=== PATIENT | female | born 1950 | race Caucasian/White ===

== ENCOUNTER 2017-10-05 13:38 | Outpatient (CLI) | payer BC | END 2017-10-05 13:39 | disposition home or self-care (01) | LOC: BICMAMMO 13:38 | PROVIDERS: ATTEND Internal Medicine | DX: Z08 Encounter for follow-up examination after completed treatment for malignant neoplasm (principal); Z85.3 Personal history of malignant neoplasm of breast | CPT/HCPCS: 77066; G0279 ==

== ENCOUNTER 2019-11-10 09:35 | Outpatient (CLI) | payer MEDICARE, BC ==
--- NOTE | 2019-11-10 12:09 | MMO ---
Bilateral MAMMO Bilat Screen [facility]. CLINICAL HISTORY: Patient is 69 years old and is seen for screening. The patient has no family history of breast cancer. The patient has a history of lumpectomy procedure revealed invasive ductal right breast carcinoma in March, and Ultrasound guided core biopsy procedure revealed invasive ductal right breast carcinoma in February,. The patient has a history of right Ultrasound Guided Core Biopsy in February,, left Stereotatic Biopsy in 1999 - benign and right Lumpectomy in 2012 - malignant. VIEWS: The views performed were: bilateral craniocaudal with tomosynthesis and bilateral mediolateral oblique with tomosynthesis. FILMS COMPARED: The present examination has been compared to prior imaging studies performed at [facility] on 12/11/2011, 12/19/2011, 10/05/2017 and 11/05/2018. This study has been interpreted with the assistance of computer-aided detection. MAMMOGRAM FINDINGS: There are scattered fibroglandular densities. Finding 1: There are stable benign appearing calcifications seen in both breasts. Finding 2: There is a mass measuring 5 millimeters seen in the CC view only seen in the central region of the right breast. Finding 3: There are stable benign appearing densities seen in both breasts. IMPRESSION: FINDING 1: STABLE CALCIFICATIONS IN BOTH BREASTS ARE BENIGN. FINDING 2: MASS IN THE RIGHT BREAST REQUIRES ADDITIONAL EVALUATION. ADDITIONAL PROJECTIONS (RIGHT CRANIOCAUDAL SPOT COMPRESSION; RIGHT MEDIOLATERAL OBLIQUE SPOT COMPRESSION; AND RIGHT MEDIOLATERAL) ARE RECOMMENDED. AN ULTRASOUND EXAM IS RECOMMENDED IF NEEDED. ADDITIONAL IMAGING. FINDING 3: STABLE BENIGN APPEARING DENSITIES IN BOTH BREASTS ARE BENIGN. THE RESULTS OF THIS EXAM WERE SENT TO THE PATIENT. ACR BI-RADS Category 0 - Incomplete: Need additional imaging evaluation. [facility] will notify the patient of the need for additional imaging services. MAMMOGRAPHY NOTE: 1. A negative mammogram report should not delay a biopsy if a dominant of clinically suspicious mass is present. 2. Approximately 10% to 15% of breast cancers are not detected by mammography. 3. Adenosis and dense breasts may obscure an underlying neoplasm. Reported by: TITA JONES MD Electonically Signed: [id number]
== END 2019-11-10 09:36 | disposition home or self-care (01) ==
LOC: BICMAMMO 09:35
PROVIDERS: ATTEND Internal Medicine
DX: Z12.31 Encounter for screening mammogram for malignant neoplasm of breast (principal); R92.1 Mammographic calcification found on diagnostic imaging of breast; N63.10 Unspecified lump in the right breast, unspecified quadrant; Z85.3 Personal history of malignant neoplasm of breast; Z98.890 Other specified postprocedural states; Z91.89 Other specified personal risk factors, not elsewhere classified
CPT/HCPCS: 77063; 77067

== ENCOUNTER 2019-11-24 08:39 | Outpatient (CLI) | payer MEDICARE, BC ==
--- NOTE | 2019-11-24 10:04 | MMO ---
Right Breast MAMMO Unilat Diag [facility]DI RT+ANN. CLINICAL HISTORY: Patient is 69 years old and is seen for diagnostic exam. The patient has no family history of breast cancer. The patient has a history of lumpectomy procedure revealed invasive ductal right breast carcinoma in March, and Ultrasound guided core biopsy procedure revealed invasive ductal right breast carcinoma in February,. The patient has a history of right Ultrasound Guided Core Biopsy in February,, left Stereotatic Biopsy in 1999 - benign and right Lumpectomy in 2012 - malignant. VIEWS: The views performed were: right craniocaudal spot compression with tomosynthesis; right mediolateral oblique spot compression with tomosynthesis; and right mediolateral with tomosynthesis. FILMS COMPARED: The present examination has been compared to prior imaging studies performed at [facility] on 10/05/2017, 11/05/2018, 11/10/2019 and 11/24/2019. This study has been interpreted with the assistance of computer-aided detection. MAMMOGRAM FINDINGS: Additional views were performed. THE TINY NODULE IN THE RIGHT BREAST LIKELY 11-12:00 POSITION PERSISTS AND APPEARS TO BE SOMEWHAT SPICULATED. IT IS NOT SEEN ON US. IMPRESSION: FINDING IN THE RIGHT BREAST IS SUSPICIOUS. NEEDLE LOCALIZATION AND BIOPSY ARE RECOMMENDED. THE RESULTS OF THIS EXAM WERE SENT TO THE PATIENT. ACR BI-RADS Category 4 - Suspicious abnormality - biopsy should be considered MAMMOGRAPHY NOTE: 1. A negative mammogram report should not delay a biopsy if a dominant of clinically suspicious mass is present. 2. Approximately 10% to 15% of breast cancers are not detected by mammography. 3. Adenosis and dense breasts may obscure an underlying neoplasm. Reported by: REZA SHEETS MD Electonically Signed: [id number]
--- NOTE | 2019-11-24 10:29 | ULT ---
RIGHT BREAST ULTRASOUND: HISTORY: Abnormal mammogram. FINDINGS: Correlation is made with mammograms of 11/10/2019 and 11/24/2019. Sonographic evaluation of the right upper outer breast demonstrates no abnormality to correspond to t he mammographic finding. IMPRESSION: BIRADS category 4 - suspicious abnormality. Needle localization and biopsy of recommended. Discussed in person with the patient at 9:45 a.m. and over the telephone with Dr. Charles Gross at 9:55 a.m. CODE CR POS: OFF
== END 2019-11-24 08:40 | disposition home or self-care (01) ==
LOC: BICMAMMO 08:39
PROVIDERS: ATTEND Internal Medicine
DX: R92.8 Other abnormal and inconclusive findings on diagnostic imaging of breast (principal)
CPT/HCPCS: 76642; 77065; G0279

== ENCOUNTER 2021-04-16 12:46 | Outpatient (CLI) | payer MEDICARE, BC | END 2021-04-16 12:47 | disposition home or self-care (01) | LOC: BICMAMMO 12:46 | PROVIDERS: ATTEND Surgery | DX: N63.11 Unspecified lump in the right breast, upper outer quadrant (principal) | CPT/HCPCS: 76642; 77066; G0279 ==

== ENCOUNTER 2022-03-11 12:31 | Inpatient (IN) | payer MEDICARE, BC ==
[2022-03-11] MEDS ORDERED: Ondansetron PF 4 MG/2 ML Vial IVP PRN (17:16)
[2022-03-11] MEDS ORDERED: Dextrose 5% in Water 1,000 ML IV PRN (17:16)
[2022-03-11] MEDS ORDERED: Ondansetron ODT 4 MG TAB PO PRN (17:16)
[2022-03-11] MEDS ORDERED: Dextrose 50% Abboject 50 ML SYRINGE SLOW IVP PRN (17:16)
[2022-03-11] MEDS ORDERED: TETANUS, DIPHTHERIA TOX,ADULT (TDVAX) 0.5 ML VIAL IM ONE (17:16)
[2022-03-11] MEDS ORDERED: traMADol HCl 50 MG TAB PO PRN (17:21)
[2022-03-11] MEDS ORDERED: Cyclobenzaprine 10 MG TAB PO PRN (17:21)
[2022-03-11 17:44] LABS: #Eosinphils 0.1 thou/uL (0.0-0.7); #Monocytes 0.6 thou/uL (0.11-0.59); #Neutrophils 4.5 thou/uL (1.40-6.50); %Basophils 0.6 % (0.0-1.0); %Eosinophils 0.9 % (0.0-10.0); %Lymphocytes 27.7 % (21.0-51.0); %Monocytes 8.3 % (0.0-10.0); %Neutrophils 62.6 % (42.0-75.0); Hemoglobin 13.5 g/dL (12.0-16.0); Mean Corpuscular Hemoglobin 32.9 pg (27.0-31.0); Mean Corpuscular Volume 99.8 fl (78.0-98.0); Mean Platelet Volume 9.1 fL (7.4-10.4); Platelet Count 279 10x3/uL (130-400); RBC Distribution Width 12.6 % (11.5-14.5); Red Blood Cell (RBC) Count 4.09 mill/uL (4.20-5.40); White Blood Cell (WBC) Count 7.2 10x3/uL (4.8-10.8)
[2022-03-11 17:57] LABS: INR-International Normal Ratio 1.2; Prothrombin Time 15.6 sec (12.0-14.7)
[2022-03-11 18:04] LABS: Phosphorus 3.5 mg/dL (2.3-4.7)
[2022-03-11 18:06] LABS: ALT (SGPT) 15 U/L (8-55); AST (SGOT) 22 U/L (5-34); Albumin 4.3 g/dL (3.4-4.8); Alkaline Phosphatase 73 U/L (40-110); Anion Gap 14 mmol/L (10-20); BUN (Urea Nitrogen) 10 mg/dL (9.8-20.1); Bilirubin, Total 0.8 mg/dL (0.2-1.2); Calc. Creatinine Clearance 0 mL/min (70-130); Calcium 9.6 mg/dL (7.8-10.44); Carbon Dioxide 26 mmol/L (23-31); Chloride 99 mmol/L (98-107); Estimated GFR 80; Globulin 3.6 g/dL (2.4-3.5); Glucose 82 mg/dL (83-110); Potassium 3.7 mmol/L (3.5-5.1); Protein, Total 7.9 g/dL (5.8-8.1); Sodium 135 mmol/L (136-145)
[2022-03-11 18:15] VITALS: BMI 32.9
[2022-03-11] MEDS: Acetaminophen 500 MG TAB PO SCH (19:24)
[2022-03-11] MEDS ORDERED: Potassium Phosphate 15 MMOL in Sodium Chloride 0.9% 250 ML 250 ML IVPB SCH (20:45)
[2022-03-11] MEDS ORDERED: Famotidine 20 MG TAB PO SCH (21:00)
[2022-03-11] MEDS: Flecainide 50 MG TAB PO SCH (21:35)
[2022-03-11] MEDS: Senokot S 8.6-50 MG TAB PO SCH (21:36)
[2022-03-12 00:20] LABS: SARS-CoV-2 NAA Rapid Test Not Detected (NotDetected)
[2022-03-12] MEDS: traMADol HCl 50 MG TAB PO PRN (01:15)
[2022-03-12] MEDS: Acetaminophen 500 MG TAB PO SCH ×5 (01:16→23:59)
[2022-03-12] MEDS: Flecainide 50 MG TAB PO SCH (09:28)
[2022-03-12] MEDS: Polyethylene Glycol 3350 17 GM Packet PO SCH (09:28)
[2022-03-12] MEDS: Senokot S 8.6-50 MG TAB PO SCH ×2 (09:29→20:51)
[2022-03-12] MEDS: Ketorolac Tromethamine 30 MG/ML VIAL IVP SCH ×3 (11:39→23:58)
[2022-03-12] MEDS: traMADol HCl 50 MG TAB PO SCH ×3 (11:39→23:59)
[2022-03-12] MEDS ORDERED: Clindamycin/D5W 900 MG in Premix Bag 1 BAG IVPB SCH (13:45)
[2022-03-13] MEDS: hydrALAZINE 20 MG/ML VIAL SLOW IVP PRN (03:39)
[2022-03-13 04:44] LABS: #Basophils 0.1 thou/uL (0.0-0.2); #Eosinphils 0.1 thou/uL (0.0-0.7); #Lymphocytes 2.3 thou/uL (1.20-3.40); #Monocytes 0.6 thou/uL (0.11-0.59); #Neutrophils 2.9 thou/uL (1.40-6.50); %Basophils 0.8 % (0.0-1.0); %Eosinophils 2.4 % (0.0-10.0); %Lymphocytes 38.7 % (21.0-51.0); %Monocytes 10.2 % (0.0-10.0); %Neutrophils 47.8 % (42.0-75.0); Hemoglobin 12.4 g/dL (12.0-16.0); Mean Corpuscular HGB CONC 32.7 g/dL (32.0-36.0); Mean Corpuscular Hemoglobin 33.2 pg (27.0-31.0); Mean Platelet Volume 8.2 fL (7.4-10.4); Platelet Count 280 10x3/uL (130-400); RBC Distribution Width 12.6 % (11.5-14.5); Red Blood Cell (RBC) Count 3.74 mill/uL (4.20-5.40)
[2022-03-13 05:11] LABS: Anion Gap 15 mmol/L (10-20); BUN (Urea Nitrogen) 13 mg/dL (9.8-20.1); Calc. Creatinine Clearance 109 mL/min (70-130); Calcium 9.4 mg/dL (7.8-10.44); Carbon Dioxide 22 mmol/L (23-31); Chloride 102 mmol/L (98-107); Cholesterol 205 mg/dl (< 200 Desired); Estimated GFR 93; Glucose 81 mg/dL (83-110); HDL Cholesterol 69 mg/dL (>60 Neg Risk); LDL Cholesterol, Calculated 123 mg/dL; Magnesium 1.9 mg/dL (1.6-2.6); Potassium 4.2 mmol/L (3.5-5.1); Sodium 135 mmol/L (136-145); Triglycerides 66 mg/dL (Less than 150)
[2022-03-13 05:33] LABS: Phosphorus 4.4 mg/dL (2.3-4.7)
[2022-03-13] MEDS: Ketorolac Tromethamine 30 MG/ML VIAL IVP SCH ×3 (06:28→18:03)
[2022-03-13] MEDS: traMADol HCl 50 MG TAB PO SCH ×3 (06:29→18:02)
[2022-03-13] MEDS: Acetaminophen 500 MG TAB PO SCH ×3 (06:29→18:02)
[2022-03-13] MEDS: Senokot S 8.6-50 MG TAB PO SCH ×2 (08:55→19:58)
[2022-03-13] MEDS: Polyethylene Glycol 3350 17 GM Packet PO SCH (08:55)
[2022-03-13] MEDS: Lisinopril 10 MG TAB PO SCH ×2 (09:06→19:56)
[2022-03-13] MEDS ORDERED: Sodium Chloride 0.9% 1,000 ML IV SCH (09:15)
[2022-03-13] MEDS ORDERED: Fentanyl 250 MCG/5 ML VIAL ONE (14:13)
[2022-03-13] MEDS ORDERED: Clindamycin/D5W 900 mg/50 ml Premix Bag ONE (14:16)
[2022-03-13] MEDS ORDERED: PROPOFOL 200 MG/20 ML VIAL ONE (14:40)
[2022-03-13] MEDS ORDERED: Lidocaine 1% PF 5 ML VIAL ONE (14:40)
[2022-03-13] MEDS ORDERED: Dexamethasone 20 MG/5 ML VIAL ONE (14:40)
[2022-03-13] MEDS ORDERED: Ondansetron PF 4 MG/2 ML Vial ONE (14:40)
[2022-03-13] MEDS ORDERED: HYDROmorphone 0.5 MG/0.5 ML SYRINGE ONE (14:41)
[2022-03-13] MEDS ORDERED: Ketamine 50 MG/ML (10ML VIAL) ONE (14:42)
[2022-03-13] MEDS ORDERED: Lidocaine 1% (PF) 30 ML VIAL ONE (14:57)
[2022-03-13] MEDS ORDERED: Bupivacaine PF 0.5% 30 ML VIAL ONE (14:57)
[2022-03-13] MEDS ORDERED: Bupivacaine 0.25% HCL 30 ML VIAL ONE (14:57)
[2022-03-13] MEDS ORDERED: Bupivacaine HCl 0.5%/Epinephrine 1:200,000/PF 30 ml Vial ONE (14:57)
[2022-03-13] MEDS ORDERED: Fentanyl 100 MCG/2 ML VIAL ONE (16:36)
[2022-03-13] MEDS: Atorvastatin Calcium 20 MG TAB PO SCH (19:56)
[2022-03-13] MEDS: Diltiazem 125 MG in Sodium Chloride 0.9% 100 ML IVPB SCH (20:31)
[2022-03-13] MEDS: Clindamycin/D5W 900 MG in Premix Bag 1 BAG IVPB SCH (21:29)
[2022-03-14] MEDS: Ketorolac Tromethamine 30 MG/ML VIAL IVP SCH ×5 (01:37→18:12)
[2022-03-14] MEDS: traMADol HCl 50 MG TAB PO SCH ×5 (01:38→18:13)
[2022-03-14] MEDS: Acetaminophen 500 MG TAB PO SCH ×5 (01:38→18:13)
[2022-03-14] MEDS: traMADol HCl 50 MG TAB PO PRN (03:27)
[2022-03-14 04:46] LABS: #Lymphocytes 0.7 thou/uL (1.20-3.40); #Monocytes 0.1 thou/uL (0.11-0.59); #Neutrophils 3.4 thou/uL (1.40-6.50); %Basophils 0.6 % (0.0-1.0); %Eosinophils 0.2 % (0.0-10.0); %Lymphocytes 16.7 % (21.0-51.0); %Monocytes 1.8 % (0.0-10.0); %Neutrophils 80.6 % (42.0-75.0); Hemoglobin 12.2 g/dL (12.0-16.0); Mean Corpuscular HGB CONC 32.5 g/dL (32.0-36.0); Mean Platelet Volume 7.9 fL (7.4-10.4); Platelet Count 287 10x3/uL (130-400); RBC Distribution Width 12.6 % (11.5-14.5); Red Blood Cell (RBC) Count 3.71 mill/uL (4.20-5.40); White Blood Cell (WBC) Count 4.3 10x3/uL (4.8-10.8)
[2022-03-14 05:17] LABS: Anion Gap 12 mmol/L (10-20); BUN (Urea Nitrogen) 17 mg/dL (9.8-20.1); Calc. Creatinine Clearance 91 mL/min (70-130); Calcium 9.1 mg/dL (7.8-10.44); Carbon Dioxide 24 mmol/L (23-31); Chloride 100 mmol/L (98-107); Estimated GFR 75; Glucose 116 mg/dL (83-110); Phosphorus 4.1 mg/dL (2.3-4.7); Sodium 131 mmol/L (136-145)
[2022-03-14] MEDS: Clindamycin/D5W 900 MG in Premix Bag 1 BAG IVPB SCH ×2 (06:15→14:37)
[2022-03-14] MEDS: Polyethylene Glycol 3350 17 GM Packet PO SCH (08:45)
[2022-03-14] MEDS: Lisinopril 10 MG TAB PO SCH ×2 (08:45→22:04)
[2022-03-14] MEDS: Senokot S 8.6-50 MG TAB PO SCH ×2 (08:45→22:05)
[2022-03-14] MEDS: Diltiazem 125 MG in Sodium Chloride 0.9% 100 ML IVPB SCH (19:17)
[2022-03-14] MEDS ORDERED: Enoxaparin Sodium 30 MG/0.3 ML SYRINGE SC SCH (21:00)
[2022-03-14] MEDS: Apixaban 5 MG TAB PO SCH (22:04)
[2022-03-14] MEDS: Atorvastatin Calcium 20 MG TAB PO SCH (22:04)
[2022-03-15] MEDS: traMADol HCl 50 MG TAB PO SCH ×4 (00:02→18:01)
[2022-03-15] MEDS: Acetaminophen 500 MG TAB PO SCH ×4 (00:03→18:00)
[2022-03-15 05:02] LABS: #Monocytes 0.6 thou/uL (0.11-0.59); #Neutrophils 4.3 thou/uL (1.40-6.50); %Basophils 0.3 % (0.0-1.0); %Eosinophils 0.2 % (0.0-10.0); %Lymphocytes 28.8 % (21.0-51.0); %Monocytes 8.3 % (0.0-10.0); %Neutrophils 62.4 % (42.0-75.0); Hemoglobin 11.5 g/dL (12.0-16.0); Mean Corpuscular HGB CONC 33.5 g/dL (32.0-36.0); Mean Platelet Volume 8.2 fL (7.4-10.4); Platelet Count 270 10x3/uL (130-400); RBC Distribution Width 12.7 % (11.5-14.5); Red Blood Cell (RBC) Count 3.37 mill/uL (4.20-5.40); White Blood Cell (WBC) Count 6.8 10x3/uL (4.8-10.8)
[2022-03-15 05:27] LABS: Anion Gap 11 mmol/L (10-20); BUN (Urea Nitrogen) 28 mg/dL (9.8-20.1); Calc. Creatinine Clearance 87 mL/min (70-130); Carbon Dioxide 25 mmol/L (23-31); Chloride 100 mmol/L (98-107); Estimated GFR 71; Glucose 119 mg/dL (83-110); Phosphorus 3.9 mg/dL (2.3-4.7); Potassium 4.8 mmol/L (3.5-5.1); Sodium 131 mmol/L (136-145)
[2022-03-15] MEDS: Ketorolac Tromethamine 30 MG/ML VIAL IVP SCH ×3 (06:17→12:08)
[2022-03-15] MEDS ORDERED: Apixaban 5 MG TAB PO SCH (09:00)
[2022-03-15] MEDS: Folic Acid 1 MG TAB PO SCH (10:05)
[2022-03-15] MEDS: Lisinopril 10 MG TAB PO SCH ×2 (10:05→20:41)
[2022-03-15] MEDS: Apixaban 5 MG TAB PO SCH ×2 (10:05→20:42)
[2022-03-15] MEDS: Polyethylene Glycol 3350 17 GM Packet PO SCH (10:06)
[2022-03-15] MEDS: Senokot S 8.6-50 MG TAB PO SCH ×2 (10:06→20:31)
[2022-03-15] MEDS: Ibuprofen 200 MG TAB PO PRN (20:24)
[2022-03-15] MEDS: Atorvastatin Calcium 20 MG TAB PO SCH (20:42)
[2022-03-16] MEDS: Acetaminophen 500 MG TAB PO SCH ×5 (00:21→23:24)
[2022-03-16] MEDS: traMADol HCl 50 MG TAB PO SCH ×5 (00:21→23:24)
[2022-03-16] MEDS: Apixaban 5 MG TAB PO SCH ×2 (08:10→21:41)
[2022-03-16] MEDS: Folic Acid 1 MG TAB PO SCH (08:10)
[2022-03-16] MEDS: Lisinopril 10 MG TAB PO SCH ×2 (08:10→21:42)
[2022-03-16] MEDS: Senokot S 8.6-50 MG TAB PO SCH ×2 (08:11→21:42)
[2022-03-16] MEDS: Polyethylene Glycol 3350 17 GM Packet PO SCH (08:11)
[2022-03-16] MEDS ORDERED: Apixaban 5 MG TAB PO SCH (09:00)
[2022-03-16] MEDS: Hydrochlorothiazide 25 MG TAB PO SCH (11:44)
[2022-03-16] MEDS: hydrALAZINE 20 MG/ML VIAL SLOW IVP PRN (17:03)
[2022-03-16] MEDS: Atorvastatin Calcium 20 MG TAB PO SCH (21:42)
[2022-03-16] MEDS ORDERED: diphenhydrAMINE 25 MG CAP PO PRN (22:20)
[2022-03-16] MEDS ORDERED: diphenhydrAMINE 50 MG CAP PO PRN (22:21)
[2022-03-17] MEDS: traMADol HCl 50 MG TAB PO SCH ×2 (04:14→11:38)
[2022-03-17] MEDS: Acetaminophen 500 MG TAB PO SCH ×2 (04:14→11:37)
[2022-03-17 05:24] LABS: Anion Gap 12 mmol/L (10-20); BUN (Urea Nitrogen) 18 mg/dL (9.8-20.1); Calc. Creatinine Clearance 95 mL/min (70-130); Calcium 9.3 mg/dL (7.8-10.44); Carbon Dioxide 25 mmol/L (23-31); Chloride 102 mmol/L (98-107); Estimated GFR 80; Glucose 85 mg/dL (83-110); Magnesium 1.9 mg/dL (1.6-2.6); Phosphorus 4.5 mg/dL (2.3-4.7); Potassium 4.3 mmol/L (3.5-5.1); Sodium 135 mmol/L (136-145)
[2022-03-17] MEDS ORDERED: Magnesium 2 GM/50 ML(in water) 2 GM in Premix Bag 1 BAG IVPB SCH (09:00)
[2022-03-17] MEDS: Lisinopril 10 MG TAB PO SCH (09:11)
[2022-03-17] MEDS: Folic Acid 1 MG TAB PO SCH (09:12)
[2022-03-17] MEDS: Apixaban 5 MG TAB PO SCH (09:12)
[2022-03-17] MEDS: Polyethylene Glycol 3350 17 GM Packet PO SCH (09:12)
[2022-03-17] MEDS: Senokot S 8.6-50 MG TAB PO SCH (09:13)
[2022-03-17] MEDS: Ibuprofen 200 MG TAB PO PRN (09:21)
[2022-03-17] MEDS: hydrALAZINE 20 MG/ML VIAL SLOW IVP PRN (09:25)
[2022-03-17] MEDS: Hydrochlorothiazide 25 MG TAB PO SCH (11:38)
[2022-03-17 12:22] VITALS: BP 127/58; TEMP 98.3
== END 2022-03-17 15:00 | DRG 494 ==
LOC: ERS 12:31 → SURG A 17:02 → 2NO 03-12 19:02
PROVIDERS: ADMIT Specialist; ATTEND Specialist
PROC: 0QSH04Z Reposition Left Tibia with Internal Fixation Device, Open Approach (ICD-10-PCS; principal; 2022-03-13)
DX: S82.852A Displaced trimalleolar fracture of left lower leg, initial encounter for closed fracture (principal); E78.00 Pure hypercholesterolemia, unspecified; I10 Essential (primary) hypertension; Z20.822 Contact with and (suspected) exposure to COVID-19; W18.30XA Fall on same level, unspecified, initial encounter; I48.0 Paroxysmal atrial fibrillation; J44.9 Chronic obstructive pulmonary disease, unspecified; Z87.891 Personal history of nicotine dependence; Z91.040 Latex allergy status; Z88.0 Allergy status to penicillin; Z88.1 Allergy status to other antibiotic agents; Z88.5 Allergy status to narcotic agent; Z79.01 Long term (current) use of anticoagulants; Z79.51 Long term (current) use of inhaled steroids; Z79.899 Other long term (current) drug therapy
CPT/HCPCS: 36415; 71045; 80048; 80053; 80061; 83735; 83880; 84100; 85025; 85610; 85730; 93005; 93010; C1713; J0360; J1100; J1170; J1885; J2001; J2405; J2704; J3010; J3475; J3490; J7030; J7050; S0020; U0002

== ENCOUNTER 2023-02-20 09:27 | Outpatient (CLI) | payer MEDICARE, BC ==
[2023-02-20] MEDS ORDERED: Iopamidol 370 76% 100 ML VIAL ONE (13:42)
== END 2023-02-20 09:28 | disposition home or self-care (01) ==
LOC: BICCT 09:27
PROVIDERS: ATTEND Internal Medicine Cardiovascular Disease
DX: I73.9 Peripheral vascular disease, unspecified (principal); I70.0 Atherosclerosis of aorta; I70.1 Atherosclerosis of renal artery; I77.4 Celiac artery compression syndrome; I70.8 Atherosclerosis of other arteries; I70.203 Unspecified atherosclerosis of native arteries of extremities, bilateral legs; K55.1 Chronic vascular disorders of intestine; N28.1 Cyst of kidney, acquired; K57.30 Diverticulosis of large intestine without perforation or abscess without bleeding; M47.816 Spondylosis without myelopathy or radiculopathy, lumbar region; M51.36 Other intervertebral disc degeneration, lumbar region
CPT/HCPCS: 75635; 82565; Q9967

== ENCOUNTER 2023-06-29 15:00 | Inpatient (IN) | payer MEDICARE ==
[2023-06-29 15:09] VITALS: BMI 32.3
[2023-06-29 16:14] LABS: Hematocrit 35.9 % (34.9-44.5); Mean Corpuscular HGB CONC 33.4 g/dL (32.0-36.0); Mean Corpuscular Hemoglobin 31.7 pg (27.0-33.0); Mean Platelet Volume 9.8 fl (7.4-10.4); Platelet Count 319 10x3/uL (150-450); RBC Distribution Width 16.9 % (11.5-14.5); Red Blood Cell (RBC) Count 3.78 10x6/uL (3.90-5.03); White Blood Cell (WBC) Count 8.8 10x3/uL (3.5-10.5)
[2023-06-29 16:38] LABS: Anion Gap 13 mmol/L (10-20); BUN (Urea Nitrogen) 12 mg/dL (9.8-20.1); Calc. Creatinine Clearance 0 mL/min (70-130); Calcium 9.5 mg/dL (7.8-10.44); Carbon Dioxide 27 mmol/L (23-31); Chloride 103 mmol/L (98-107); Estimated GFR 86; Glucose 88 mg/dL (83-110); Potassium 4.2 mmol/L (3.5-5.1); Sodium 139 mmol/L (136-145)
[2023-07-01] MEDS ORDERED: Midazolam HCl 2 mg/2 ml Vial ONE (07:12)
[2023-07-01] MEDS ORDERED: fentaNYL PF 100 MCG/2 ML SYRINGE ONE ×3 (07:12→09:14)
[2023-07-01] MEDS ORDERED: Rocuronium Bromide 10 MG/ML (10ML VIAL) ONE (07:12)
[2023-07-01] MEDS ORDERED: ePHEDrine Sulfate 50 MG/10 ML VIAL ONE (07:12)
[2023-07-01] MEDS ORDERED: PROPOFOL 20 ML ONE (07:12)
[2023-07-01] MEDS ORDERED: SUGAMMADEX SODIUM 200 MG/2 ML VIAL ONE ×2 (07:12→10:38)
[2023-07-01] MEDS ORDERED: Ondansetron PF 4 MG/2 ML Vial ONE (07:13)
[2023-07-01] MEDS ORDERED: Dexamethasone 20 MG/5 ML VIAL ONE (07:13)
[2023-07-01] MEDS ORDERED: Aminocaproic Acid 5 GM/20 ML VIAL ONE ×2 (07:13→08:50)
[2023-07-01] MEDS ORDERED: Norepinephrine 4 MG/4 ML VIAL ONE (07:13)
[2023-07-01] MEDS ORDERED: Calcium Chloride 1 GM/10 ML Abboject SYRINGE ONE ×2 (07:14→08:50)
[2023-07-01] MEDS ORDERED: Lidocaine 2% PF 100 mg/5 ml Syringe ONE (07:14)
[2023-07-01] MEDS ORDERED: Lidocaine 2% PF 5 ML VIAL ONE (07:14)
[2023-07-01] MEDS ORDERED: Sodium Chloride 0.9% 250 ML 250 ML ONE (07:15)
[2023-07-01] MEDS ORDERED: Dexamethasone 4 mg/ml Vial ONE (07:26)
[2023-07-01] MEDS ORDERED: EPINEPHrine 1 MG/ML VIAL ONE (07:26)
[2023-07-01] MEDS ORDERED: Bupivacaine PF 0.5% 30 ML VIAL ONE (07:27)
[2023-07-01] MEDS ORDERED: Albumin 5% 0 ML ONE (07:27)
[2023-07-01] MEDS ORDERED: Heparin 10,000 UNITS/1 ML VIAL 30,000 UNITS in Sodium Chloride 0.9% 1,000 ML FS SCH (07:30)
[2023-07-01] MEDS ORDERED: Albuterol 2.5 MG (3 mL) NEB ONE (08:04)
[2023-07-01] MEDS ORDERED: Heparin 30,000 units/30 ml VIAL ONE (08:50)
[2023-07-01] MEDS ORDERED: Thrombin 5000 UNITS/5 ML VIAL ONE (08:50)
[2023-07-01] MEDS ORDERED: Vancomycin 1 GM VIAL ONE (08:50)
[2023-07-01] MEDS ORDERED: Esmolol 100 MG/10 ML VIAL ONE (08:50)
[2023-07-01] MEDS ORDERED: Protamine Sulfate 250 MG/25 ML VIAL ONE (08:50)
[2023-07-01] MEDS ORDERED: Papaverine 60 MG/2 ML VIAL ONE (08:50)
[2023-07-01] MEDS ORDERED: PHENYLEPHRINE-NS 100 MCG/ML 10 ML SYRINGE ONE (08:50)
[2023-07-01] MEDS ORDERED: Labetalol HCl 100 MG/20 ML VIAL ONE (10:26)
[2023-07-01] MEDS ORDERED: Mag-Al 1200 mg/1200 mg/30 ML UDCUP PO PRN (10:49)
[2023-07-01] MEDS ORDERED: NOREPINEPHRINE 8 MG/250 ML-D5W 250 ML IVPB PRN (10:49)
[2023-07-01] MEDS ORDERED: fentaNYL 50 mcg/mL 1 mL Vial SLOW IVP PRN (10:49)
[2023-07-01] MEDS ORDERED: Albumin 5% 12.5 GM (250 mL) BOT IVPB PRN ×2 (10:49)
[2023-07-01] MEDS ORDERED: Hetastarch 6% 500 ML 500 ML IVPB PRN (10:49)
[2023-07-01] MEDS ORDERED: Morphine 2 MG/ML VIAL SLOW IVP PRN (10:49)
[2023-07-01] MEDS ORDERED: Nitroglycerin 50 MG/250 ML BOT 250 ML IVPB PRN (10:49)
[2023-07-01] MEDS ORDERED: Guaifenesin DM 100-10/5 ML UDCUP PO PRN (10:49)
[2023-07-01] MEDS ORDERED: Albuterol 200 PUFF (6.7GM INHALER) INH PRN (11:01)
[2023-07-01] MEDS ORDERED: Dextrose 5% in Water 1,000 ML IV PRN (11:15)
[2023-07-01] MEDS ORDERED: Dextrose 50% Abboject 50 ML SYRINGE SLOW IVP PRN (11:15)
[2023-07-01] MEDS ORDERED: Glucagon 1 MG/ML KIT SC PRN (11:15)
[2023-07-01] MEDS ORDERED: Insulin Reg, Human 100 UNITS in Sodium Chloride 0.9% 100 ML IVPB SCH (11:15)
[2023-07-01] MEDS: fentaNYL 50 mcg/mL 1 mL Vial SLOW IVP PRN (11:20)
[2023-07-01 11:35] LABS: #Basophils Less than 0.03 10x3/uL (0.0-0.2); %Basophils 0.2 % (0.0-1.0); %Eosinophils 0.6 % (0.0-10.0); %Lymphocytes 20.3 % (21.0-51.0); %Monocytes 5.3 % (0.0-10.0); %Neutrophils 72.9 % (42.0-75.0); Hematocrit 33.9 % (36.0-47.0); Hemoglobin 11.1 g/dL (12.0-16.0); Mean Corpuscular HGB CONC 32.7 g/dL (32.0-36.0); Mean Corpuscular Hemoglobin 32.1 pg (27.0-31.0); Mean Platelet Volume 9.3 fL (7.4-10.4); Platelet Count 259 10x3/uL (130-400); RBC Distribution Width 16.9 % (11.5-14.5); Red Blood Cell (RBC) Count 3.46 mill/uL (4.20-5.40)
[2023-07-01] MEDS: Magnesium 2 GM/50 ML(in water) 2 GM in Premix 1 BAG IVPB SCH (11:39)
[2023-07-01] MEDS: D5 1/2 NS w/20 mEq KCL 1,000 ML IV SCH (11:39)
[2023-07-01 11:52] LABS: INR-International Normal Ratio 1.2; PTT 47.9 sec (22.9-36.1); Prothrombin Time 14.7 sec (12.0-14.7)
[2023-07-01] MEDS: Ketorolac Tromethamine 30 MG (1 mL) VIAL IVP SCH (11:54)
[2023-07-01 12:14] LABS: Anion Gap 10 mmol/L (10-20)
[2023-07-01 12:29] LABS: BUN (Urea Nitrogen) 12 mg/dL (9.8-20.1); Calc. Creatinine Clearance 107 mL/min (70-130); Carbon Dioxide 21 mmol/L (23-31); Chloride 108 mmol/L (98-107); Estimated GFR 92; Glucose 116 mg/dL (83-110); Potassium 3.8 mmol/L (3.5-5.1); Sodium 135 mmol/L (136-145)
[2023-07-01] MEDS: Ondansetron PF 4 MG/2 ML Vial IVP PRN (12:52)
[2023-07-01] MEDS: Potassium Chloride 20 MEQ (100 mL) BAG IVPB PRN (12:52)
[2023-07-01] MEDS: BEER 1 CAN PO SCH (13:20)
[2023-07-01] MEDS: [UNRECOGNIZED DRUG - OTHER] PO SCH ×3 (13:20→17:29)
[2023-07-01] MEDS: hydrALAZINE 20 MG/ML VIAL SLOW IVP PRN (16:04)
[2023-07-01 16:25] LABS: Hematocrit 34.8 % (36.0-47.0); Hemoglobin 11.3 g/dL (12.0-16.0)
[2023-07-01] MEDS: Insulin Regular 300 UNITS/3 ML VIAL SC PRN (16:44)
[2023-07-01] MEDS: CEFAZOLIN 2 GM in Sodium Chloride 0.9% 100 ML IVPB SCH (16:45)
[2023-07-01] MEDS: traMADol HCl 50 MG TAB PO PRN (18:14)
[2023-07-01] MEDS: dilTIAZem CD 240 MG CAP PO SCH (18:15)
[2023-07-01] MEDS: Lisinopril 10 MG TAB PO SCH (18:15)
[2023-07-01] MEDS: Metoprolol Tartrate 5 MG (5 mL) VIAL IVP SCH (19:55)
[2023-07-01] MEDS: niCARdipine 25 MG in Sodium Chloride 0.9% 250 ML 250 ML IVPB SCH (19:59)
[2023-07-01] MEDS: Atorvastatin Calcium 10 MG TAB PO SCH (20:56)
[2023-07-01] MEDS: Famotidine/PF 20 mg/2ml Vial SLOW IVP SCH (20:56)
[2023-07-01 20:59] LABS: Potassium 4.9 mmol/L (3.5-5.1)
[2023-07-02] MEDS: Acetaminophen 325 MG TAB PO PRN (04:33)
[2023-07-02 04:34] LABS: #Basophils Less than 0.03 10x3/uL (0.0-0.2); #Eosinphils Less than 0.03 10x3/uL (0.0-0.7); %Basophils 0.1 % (0.0-1.0); %Lymphocytes 6.2 % (21.0-51.0); %Monocytes 5.4 % (0.0-10.0); Hemoglobin 10.4 g/dL (12.0-16.0); Mean Corpuscular HGB CONC 33.5 g/dL (32.0-36.0); Mean Corpuscular Hemoglobin 31.9 pg (27.0-31.0); Mean Corpuscular Volume 95.1 fL (78.0-98.0); Mean Platelet Volume 9.7 fL (7.4-10.4); Platelet Count 282 10x3/uL (130-400); RBC Distribution Width 17.1 % (11.5-14.5); Red Blood Cell (RBC) Count 3.26 mill/uL (4.20-5.40)
[2023-07-02 05:07] LABS: Anion Gap 9 mmol/L (10-20)
[2023-07-02 05:10] LABS: BUN (Urea Nitrogen) 19 mg/dL (9.8-20.1); Calc. Creatinine Clearance 77 mL/min (70-130); Calcium 7.9 mg/dL (7.8-10.44); Carbon Dioxide 21 mmol/L (23-31); Chloride 101 mmol/L (98-107); Estimated GFR 64; Glucose 126 mg/dL (83-110); Potassium 4.8 mmol/L (3.5-5.1); Sodium 126 mmol/L (136-145)
[2023-07-02] MEDS ORDERED: diphenhydrAMINE 25 MG CAP PO PRN (07:25)
[2023-07-02] MEDS ORDERED: Mineral Oil ENEMA PR PRN (07:25)
[2023-07-02] MEDS ORDERED: Nitroglycerin 0.4 MG TAB (25 Tab Bottle) SL PRN (07:25)
[2023-07-02] MEDS ORDERED: Guaifenesin DM 100-10/5 ML UDCUP PO PRN (07:25)
[2023-07-02] MEDS ORDERED: Zolpidem Tartrate 5 MG TAB PO PRN (07:25)
[2023-07-02] MEDS ORDERED: Artificial Tear Sol 15 ML BOT EA EYE PRN (07:25)
[2023-07-02] MEDS ORDERED: Mag-Al 1200 mg/1200 mg/30 ML UDCUP PO PRN (07:25)
[2023-07-02] MEDS ORDERED: Bisacodyl 5 MG TAB PO PRN (07:25)
[2023-07-02] MEDS ORDERED: Milk Of Magnesia 30 ML UDCUP PO PRN (07:25)
[2023-07-02] MEDS ORDERED: Bisacodyl 10 MG SUPP PR PRN (07:25)
[2023-07-02] MEDS: Aspirin 325 MG TAB PO SCH (08:40)
[2023-07-02] MEDS: Calcium Carbonate + Vit D 250 MG TAB PO SCH (08:41)
[2023-07-02] MEDS: Furosemide 40 MG TAB PO SCH (08:41)
[2023-07-02] MEDS: Lisinopril 10 MG TAB PO SCH (08:41)
[2023-07-02] MEDS: Famotidine 20 MG TAB PO SCH (08:42)
[2023-07-02] MEDS: dilTIAZem CD 240 MG CAP PO SCH (08:42)
[2023-07-02] MEDS: Magnesium 2 GM/50 ML(in water) 2 GM in Premix 1 BAG IVPB SCH (08:43)
[2023-07-02] MEDS ORDERED: Insulin Glargine 30 UNITS/0.3 ML VIAL SC PRN (11:07)
[2023-07-02] MEDS: traMADol HCl 50 MG TAB PO PRN (14:29)
[2023-07-03] MEDS: Ipratropium/Albuterol 3 ML NEB NEB PRN (02:56)
[2023-07-03] MEDS: Furosemide 40 MG TAB PO SCH (15:17)
[2023-07-04 06:20] LABS: Cardiac Risk 2.5 (Less than 4.5)
[2023-07-05] MEDS: Furosemide 40 MG (4 mL) VIAL SLOW IVP SCH (08:25)
[2023-07-05] MEDS: Furosemide 40 MG (4 mL) VIAL ONE (09:20)
[2023-07-05] MEDS: Lorazepam 2 MG/ML VIAL SLOW IVP SCH (09:26)
[2023-07-05] MEDS: Lorazepam 2 MG/ML VIAL ONE (09:26)
[2023-07-05] MEDS: Amiodarone 450 MG in Dextrose 5% in Water 250 ML IVPB SCH (09:26)
[2023-07-05] MEDS: Amiodarone 150 MG in Dextrose 5% in Water 100 ML IVPB SCH (09:27)
[2023-07-05 10:03] LABS: ALT (SGPT) 19 U/L (8-55); AST (SGOT) 26 U/L (5-34); Albumin 2.8 g/dL (3.4-4.8); Alkaline Phosphatase 71 U/L (40-110); BUN (Urea Nitrogen) 39 mg/dL (9.8-20.1); Calc. Creatinine Clearance 94 mL/min (70-130); Calcium 8.9 mg/dL (7.8-10.44); Carbon Dioxide 22 mmol/L (23-31); Chloride 100 mmol/L (98-107); Estimated GFR 65; Glucose 111 mg/dL (83-110); Potassium 4.4 mmol/L (3.5-5.1); Protein, Total 6.8 g/dL (5.8-8.1); Sodium 132 mmol/L (136-145)
[2023-07-05 10:29] LABS: #Basophils Less than 0.03 10x3/uL (0.0-0.2); #Eosinphils Less than 0.03 10x3/uL (0.0-0.7); %Basophils 0.1 % (0.0-1.0); %Lymphocytes 12.1 % (21.0-51.0); %Monocytes 9.4 % (0.0-10.0); %Neutrophils 77.8 % (42.0-75.0); Hematocrit 34.3 % (36.0-47.0); Hemoglobin 11.1 g/dL (12.0-16.0); Mean Corpuscular HGB CONC 32.4 g/dL (32.0-36.0); Mean Corpuscular Hemoglobin 31.4 pg (27.0-31.0); Mean Corpuscular Volume 96.9 fL (78.0-98.0); Mean Platelet Volume 9.7 fL (7.4-10.4); Platelet Count 337 10x3/uL (130-400); RBC Distribution Width 17.2 % (11.5-14.5); Red Blood Cell (RBC) Count 3.54 mill/uL (4.20-5.40)
[2023-07-05 10:32] LABS: Anion Gap 14 mmol/L (10-20)
[2023-07-06] MEDS: Metolazone 5 MG TAB PO SCH (08:00)
[2023-07-06] MEDS: Ipratropium/Albuterol 3 ML NEB NEB SCH (13:33)
[2023-07-06 14:14] LABS: Actual Bicarbonate (HCO3a) 20.1 mEq/L (22-28); Analyzer IN Cardio OR; Base Excess (BEa) -4.9 mEq/L (-2.0 to +3.0); Calcium, Ionized (arterial) 1.12 mmol/L (1.12-1.30); Carboxyhemoglobin (COHb) 0.3 gm% (0.0-3.0); Hematocrit-ABG 33 % (36.0-47.0); Hemoglobin (Hb) 11.1 g/dL (12.0-16.0); O2 Tension (PaO2), arterial 488.9 mmHg (> 70.0); Potassium - ABG Lab 3.59 mmol/L (3.70-5.30); pH, Arterial 7.353 (7.35-7.45)
[2023-07-06 14:14] LABS: Analyzer IN Cardio OR; Base Excess (BEa) -5.2 mEq/L (-2.0 to +3.0); CO2 Tension 37.7 mmHg (35.0-45.0); Calcium, Ionized (arterial) 1.15 mmol/L (1.12-1.30); Carboxyhemoglobin (COHb) 0.4 gm% (0.0-3.0); Hematocrit-ABG 34 % (36.0-47.0); Hemoglobin (Hb) 11.5 g/dL (12.0-16.0); O2 Tension (PaO2), arterial 383.2 mmHg (> 70.0); pH, Arterial 7.342 (7.35-7.45)
[2023-07-06 14:15] LABS: Actual Bicarbonate (HCO3a) 19.2 mEq/L (22-28); Analyzer IN Cardio OR; Base Excess (BEa) -6.3 mEq/L (-2.0 to +3.0); CO2 Tension 38.1 mmHg (35.0-45.0); Calcium, Ionized (arterial) 1.07 mmol/L (1.12-1.30); Carboxyhemoglobin (COHb) 0.4 gm% (0.0-3.0); Hematocrit-ABG 34 % (36.0-47.0); Hemoglobin (Hb) 11.5 g/dL (12.0-16.0); O2 Tension (PaO2), arterial 492.2 mmHg (> 70.0)
[2023-07-06 14:15] LABS: Puncture Site Arterial Line
[2023-07-06 14:16] LABS: Puncture Site Arterial Line
[2023-07-06 14:16] LABS: Puncture Site Arterial Line
[2023-07-06] MEDS: Budesonide 0.5 MG/2 ML NEB INH SCH (19:19)
[2023-07-06] MEDS: Mometasone 100 MCG HFA INHALER (RT USE) INH SCH (19:21)
[2023-07-07] MEDS: Metolazone 5 MG TAB PO SCH (06:45)
[2023-07-07] MEDS: Lidocaine 4% Patch TD SCH (10:48)
[2023-07-07] MEDS: Levalbuterol HCl 0.63 MG/3 ML NEB NEB SCH (14:59)
[2023-07-07] MEDS: Transdermal Patch Removal TOP SCH (20:48)
[2023-07-08] MEDS: Lidocaine 4% Patch TD SCH (08:27)
[2023-07-08] MEDS: dilTIAZem ER 60 MG CAP PO SCH (09:00)
[2023-07-08] MEDS: Mometasone 200 MCG/Formoterol 5 MCG 120 PUFF INHALER INH SCH (21:04)
[2023-07-09] MEDS: Bisacodyl 5 MG TAB PO PRN (17:40)
[2023-07-09] MEDS: Amiodarone 200 MG TAB PO SCH (22:08)
[2023-07-10] MEDS: Amiodarone 200 MG TAB PO SCH (09:42)
[2023-07-11] MEDS: traMADol HCl 50 MG TAB PO PRN ×2 (09:33→20:47)
[2023-07-13] MEDS: Carvedilol 3.125 MG TAB PO SCH (08:37)
[2023-07-13] MEDS: Levalbuterol HCl 0.63 MG/3 ML NEB NEB PRN (09:37)
[2023-07-13] MEDS: Furosemide 40 MG (4 mL) VIAL ONE (10:17)
[2023-07-13] MEDS: methylPREDNISolone Sod Succ 40 MG VIAL IVP SCH (10:18)
[2023-07-13] MEDS: Furosemide 40 MG (4 mL) VIAL SLOW IVP SCH ×2 (11:06→14:02)
[2023-07-13 11:27] LABS: #Basophils Less than 0.03 10x3/uL (0.0-0.2); #Eosinphils Less than 0.03 10x3/uL (0.0-0.7); %Basophils 0.1 % (0.0-1.0); %Lymphocytes 4.6 % (21.0-51.0); %Neutrophils 85.5 % (42.0-75.0); Hematocrit 32.1 % (36.0-47.0); Hemoglobin 10.2 g/dL (12.0-16.0); Mean Corpuscular HGB CONC 31.8 g/dL (32.0-36.0); Mean Corpuscular Hemoglobin 31.7 pg (27.0-31.0); Mean Corpuscular Volume 99.7 fL (78.0-98.0); Mean Platelet Volume 9.3 fL (7.4-10.4); Platelet Count 363 10x3/uL (130-400); RBC Distribution Width 16.5 % (11.5-14.5); Red Blood Cell (RBC) Count 3.22 mill/uL (4.20-5.40)
[2023-07-13 12:08] LABS: Anion Gap 20 mmol/L (10-20)
[2023-07-13 12:13] LABS: ALT (SGPT) 39 U/L (8-55); AST (SGOT) 52 U/L (5-34); Albumin 2.1 g/dL (3.4-4.8); Alkaline Phosphatase 83 U/L (40-110); BUN (Urea Nitrogen) 91 mg/dL (9.8-20.1); Bilirubin, Total 0.7 mg/dL (0.2-1.2); Calc. Creatinine Clearance 47 mL/min (70-130); Calcium 8.8 mg/dL (7.8-10.44); Carbon Dioxide 23 mmol/L (23-31); Chloride 88 mmol/L (98-107); Estimated GFR 30; Glucose 117 mg/dL (83-110); Protein, Total 6.1 g/dL (5.8-8.1); Sodium 127 mmol/L (136-145)
[2023-07-13] MEDS: Pantoprazole 40 MG VIAL IVP SCH (13:04)
[2023-07-13] MEDS ORDERED: Ventilator Sedation Protocol 1 EACH FS SCH (13:32)
[2023-07-13] MEDS ORDERED: Rocuronium Bromide 10 MG/ML (10ML VIAL) ONE (13:40)
[2023-07-13] MEDS ORDERED: Etomidate 40 MG (20 mL) VIAL ONE (13:40)
[2023-07-13] MEDS: Etomidate 40 MG (20 mL) VIAL IVP SCH (13:43)
[2023-07-13] MEDS: Rocuronium Bromide 50 MG/5 ML VIAL IVP SCH (13:44)
[2023-07-13] MEDS ORDERED: DISCONTINUE PREVIOUS NARCOTIC PAIN MEDICATIONS AND BENZODIAZEPINES FS SCH (13:45)
[2023-07-13] MEDS ORDERED: Propofol BOLUS 1,000 MG/100 ML VIAL IV PRN (13:45)
[2023-07-13] MEDS ORDERED: Fentanyl BOLUS 250 ML IVPB PRN (13:45)
[2023-07-13 13:48] LABS: INR-International Normal Ratio 1.1; PTT 23.9 sec (22.9-36.1); Prothrombin Time 13.9 sec (12.0-14.7)
[2023-07-13] MEDS ORDERED: Levalbuterol HCl 0.63 MG/3 ML NEB NEB PRN (14:00)
[2023-07-13] MEDS ORDERED: Morphine 4 MG/ML VIAL SLOW IVP PRN (14:00)
[2023-07-13] MEDS ORDERED: Morphine 2 MG/ML VIAL SLOW IVP PRN (14:00)
[2023-07-13] MEDS: Lorazepam 2 MG/ML VIAL SLOW IVP PRN (14:02)
[2023-07-13] MEDS: Propofol 1,000 MG/100 ML VIAL IV PRN (14:04)
[2023-07-13 14:26] LABS: Actual Bicarbonate (HCO3a) 27.8 mEq/L (22-28); Base Excess (BEa) 3.2 mEq/L (-2.0 to +3.0); CO2 Tension 42.6 mmHg (35.0-45.0); Carboxyhemoglobin (COHb) 0.3 gm% (0.0-3.0); Hematocrit-ABG 30 % (36.0-47.0); Hemoglobin (Hb) 10.3 g/dL (12.0-16.0); O2 Tension (PaO2), arterial 159.3 mmHg (> 70.0); Potassium - ABG Lab 3.37 mmol/L (3.70-5.30); pH, Arterial 7.433 (7.35-7.45)
[2023-07-13 14:28] LABS: Puncture Site LBA
[2023-07-13] MEDS: Vecuronium 10 MG VIAL ONE (17:05)
[2023-07-13] MEDS: Vecuronium 10 MG VIAL IVP PRN (18:11)
[2023-07-13] MEDS: CEFAZOLIN 2 GM in Sodium Chloride 0.9% 100 ML IVPB SCH (21:00)
[2023-07-13] MEDS: Vancomycin (BATCH) 2.5 GM in Premix 1 BAG IVPB SCH (21:01)
[2023-07-13] MEDS: dilTIAZem 30 MG TAB PO SCH (21:01)
[2023-07-13] MEDS ORDERED: CEFAZOLIN 1 GM VIAL SLOW IVP SCH (22:00)
[2023-07-13] MEDS: Sterile Water 10 ML VIAL FS PRN (23:42)
[2023-07-14 06:29] LABS: Vancomycin, Random 32.3 ug/mL (See Comment)
[2023-07-14] MEDS ORDERED: Famotidine 20 MG TAB PO SCH (09:00)
[2023-07-14] MEDS: Pantoprazole 40 MG VIAL IVP SCH (10:30)
[2023-07-14] MEDS ORDERED: fentaNYL PF 100 MCG/2 ML SYRINGE ONE ×2 (15:03→16:04)
[2023-07-14] MEDS ORDERED: ePHEDrine Sulfate 50 MG/10 ML VIAL ONE (15:07)
[2023-07-14] MEDS: Fentanyl CADD 100 ML IV SCH (19:35)
[2023-07-14] MEDS: Vancomycin 1 GM in Premix 1 BAG IVPB SCH (19:36)
[2023-07-15 05:34] LABS: #Basophils Less than 0.03 10x3/uL (0.0-0.2); #Eosinphils Less than 0.03 10x3/uL (0.0-0.7); %Basophils 0.1 % (0.0-1.0); %Lymphocytes 7.1 % (21.0-51.0); %Monocytes 4.4 % (0.0-10.0); %Neutrophils 87.5 % (42.0-75.0); Hematocrit 28.9 % (36.0-47.0); Hemoglobin 9.7 g/dL (12.0-16.0); Mean Corpuscular HGB CONC 33.6 g/dL (32.0-36.0); Mean Corpuscular Hemoglobin 31.1 pg (27.0-31.0); Mean Corpuscular Volume 92.6 fL (78.0-98.0); Mean Platelet Volume 9.6 fL (7.4-10.4); Platelet Count 480 10x3/uL (130-400); RBC Distribution Width 16.3 % (11.5-14.5); Red Blood Cell (RBC) Count 3.12 mill/uL (4.20-5.40)
[2023-07-15 06:00] LABS: Anion Gap 20 mmol/L (10-20); BUN (Urea Nitrogen) 98 mg/dL (9.8-20.1); Calc. Creatinine Clearance 48 mL/min (70-130); Calcium 8.5 mg/dL (7.8-10.44); Carbon Dioxide 28 mmol/L (23-31); Chloride 89 mmol/L (98-107); Estimated GFR 32; Glucose 103 mg/dL (83-110); Potassium 2.9 mmol/L (3.5-5.1); Sodium 134 mmol/L (136-145)
[2023-07-15] MEDS: Potassium Chloride 40 MEQ in Premix 1 BAG IVPB SCH (08:01)
[2023-07-15 09:23] LABS: Magnesium 2.6 mg/dL (1.6-2.6); Phosphorus 4.3 mg/dL (2.3-4.7)
[2023-07-15] MEDS: Nitroglycerin 2% Ointment 1 INCH/1 GM Packet TOP SCH (10:26)
[2023-07-15 16:26] LABS: Potassium 3.7 mmol/L (3.5-5.1)
[2023-07-15] MEDS ORDERED: Nitroglycerin 2% Ointment 1 INCH/1 GM Packet TOP SCH (21:00)
[2023-07-16] MEDS: Albumin 25% 25 GM (100 mL) BOT IVPB SCH ×2 (04:11→10:02)
[2023-07-16] MEDS: Albumin 25% 100 ML ONE (04:11)
[2023-07-16 04:29] LABS: #Basophils Less than 0.03 10x3/uL (0.0-0.2); #Eosinphils Less than 0.03 10x3/uL (0.0-0.7); %Basophils 0.1 % (0.0-1.0); %Eosinophils 0.1 % (0.0-10.0); %Lymphocytes 6.5 % (21.0-51.0); %Monocytes 6.2 % (0.0-10.0); %Neutrophils 86.1 % (42.0-75.0); Hematocrit 26.6 % (36.0-47.0); Hemoglobin 8.9 g/dL (12.0-16.0); Mean Corpuscular HGB CONC 33.5 g/dL (32.0-36.0); Mean Corpuscular Hemoglobin 31.2 pg (27.0-31.0); Mean Corpuscular Volume 93.3 fL (78.0-98.0); Mean Platelet Volume 9.9 fL (7.4-10.4); Platelet Count 456 10x3/uL (130-400); RBC Distribution Width 16.2 % (11.5-14.5); Red Blood Cell (RBC) Count 2.85 mill/uL (4.20-5.40)
[2023-07-16 04:41] LABS: Vancomycin, Random 55.3 ug/mL (See Comment)
[2023-07-16 04:47] LABS: Anion Gap 21 mmol/L (10-20); BUN (Urea Nitrogen) 116 mg/dL (9.8-20.1); Calc. Creatinine Clearance 32 mL/min (70-130); Calcium 8.2 mg/dL (7.8-10.44); Carbon Dioxide 24 mmol/L (23-31); Chloride 92 mmol/L (98-107); Estimated GFR 19; Glucose 122 mg/dL (83-110); Potassium 4.1 mmol/L (3.5-5.1); Sodium 133 mmol/L (136-145)
[2023-07-16] MEDS: Sodium Chloride 0.9% 500 ML IV SCH (06:48)
[2023-07-16] MEDS: Sterile Water 0 ML ONE (06:53)
[2023-07-16 07:35] LABS: Actual Bicarbonate (HCO3a) 24.7 mEq/L (22-28); Base Excess (BEa) -0.4 mEq/L (-2.0 to +3.0); CO2 Tension 42.4 mmHg (35.0-45.0); Calcium, Ionized (arterial) 1.03 mmol/L (1.12-1.30); Hematocrit-ABG 26 % (36.0-47.0); Hemoglobin (Hb) 8.9 g/dL (12.0-16.0); O2 Tension (PaO2), arterial 85.9 mmHg (> 70.0); Potassium - ABG Lab 3.77 mmol/L (3.70-5.30); pH, Arterial 7.383 (7.35-7.45)
[2023-07-16 08:01] LABS: Puncture Site LRA
[2023-07-16] MEDS: NOREPINEPHRINE 8 MG/250 ML-D5W 250 ML IVPB SCH (11:27)
[2023-07-16] MEDS: Bisacodyl 10 MG SUPP PR PRN (11:44)
[2023-07-17 03:51] LABS: #Basophils Less than 0.03 10x3/uL (0.0-0.2); #Eosinphils Less than 0.03 10x3/uL (0.0-0.7); %Basophils 0.1 % (0.0-1.0); %Eosinophils 0.1 % (0.0-10.0); %Lymphocytes 5.6 % (21.0-51.0); %Monocytes 3.1 % (0.0-10.0); %Neutrophils 89.9 % (42.0-75.0); Hematocrit 26.4 % (36.0-47.0); Hemoglobin 8.8 g/dL (12.0-16.0); Mean Corpuscular HGB CONC 33.3 g/dL (32.0-36.0); Mean Corpuscular Hemoglobin 31.2 pg (27.0-31.0); Mean Corpuscular Volume 93.6 fL (78.0-98.0); Mean Platelet Volume 9.9 fL (7.4-10.4); Platelet Count 378 10x3/uL (130-400); RBC Distribution Width 16.7 % (11.5-14.5); Red Blood Cell (RBC) Count 2.82 mill/uL (4.20-5.40)
[2023-07-17 04:22] LABS: Anion Gap 19 mmol/L (10-20); BUN (Urea Nitrogen) 119 mg/dL (9.8-20.1); Calc. Creatinine Clearance 29 mL/min (70-130); Calcium 7.8 mg/dL (7.8-10.44); Carbon Dioxide 22 mmol/L (23-31); Chloride 96 mmol/L (98-107); Estimated GFR 17; Glucose 120 mg/dL (83-110); Potassium 3.7 mmol/L (3.5-5.1); Sodium 133 mmol/L (136-145)
[2023-07-17 07:13] LABS: Actual Bicarbonate (HCO3a) 22.7 mEq/L (22-28); Base Excess (BEa) -3.6 mEq/L (-2.0 to +3.0); CO2 Tension 46.8 mmHg (35.0-45.0); Calcium, Ionized (arterial) 1.01 mmol/L (1.12-1.30); Carboxyhemoglobin (COHb) 0.4 gm% (0.0-3.0); Hematocrit-ABG 29 % (36.0-47.0); O2 Tension (PaO2), arterial 104.4 mmHg (> 70.0); Potassium - ABG Lab 4.13 mmol/L (3.70-5.30); pH, Arterial 7.304 (7.35-7.45)
[2023-07-17 07:15] LABS: Puncture Site LRA
[2023-07-17] MEDS: CEFAZOLIN 2 GM in Sodium Chloride 0.9% 100 ML IVPB SCH (09:48)
[2023-07-17] MEDS: Sodium Chloride 0.9% 1,000 ML IV SCH (10:55)
[2023-07-18 04:14] LABS: #Basophils Less than 0.03 10x3/uL (0.0-0.2); %Basophils 0.1 % (0.0-1.0); %Eosinophils 0.8 % (0.0-10.0); %Lymphocytes 5.9 % (21.0-51.0); %Monocytes 4.8 % (0.0-10.0); %Neutrophils 86.6 % (42.0-75.0); Hematocrit 26.2 % (36.0-47.0); Hemoglobin 8.6 g/dL (12.0-16.0); Mean Corpuscular HGB CONC 32.8 g/dL (32.0-36.0); Mean Corpuscular Hemoglobin 31.2 pg (27.0-31.0); Mean Corpuscular Volume 94.9 fL (78.0-98.0); Mean Platelet Volume 10.1 fL (7.4-10.4); Platelet Count 343 10x3/uL (130-400); RBC Distribution Width 17.6 % (11.5-14.5); Red Blood Cell (RBC) Count 2.76 mill/uL (4.20-5.40)
[2023-07-18 04:41] LABS: Anion Gap 19 mmol/L (10-20); BUN (Urea Nitrogen) 123 mg/dL (9.8-20.1); Calc. Creatinine Clearance 28 mL/min (70-130); Calcium 7.6 mg/dL (7.8-10.44); Carbon Dioxide 19 mmol/L (23-31); Chloride 100 mmol/L (98-107); Estimated GFR 16; Glucose 127 mg/dL (83-110); Potassium 4.1 mmol/L (3.5-5.1); Sodium 134 mmol/L (136-145)
[2023-07-19] MEDS: Albumin 25% 25 GM (100 mL) BOT IVPB SCH ×2 (00:51→05:47)
[2023-07-19 04:59] LABS: Hematocrit 26.3 % (36.0-47.0); Hemoglobin 8.5 g/dL (12.0-16.0); Mean Corpuscular HGB CONC 32.3 g/dL (32.0-36.0); Mean Corpuscular Hemoglobin 30.2 pg (27.0-31.0); Mean Corpuscular Volume 93.6 fL (78.0-98.0); Mean Platelet Volume 10.2 fL (7.4-10.4); Platelet Count 337 10x3/uL (130-400); RBC Distribution Width 18.8 % (11.5-14.5); Red Blood Cell (RBC) Count 2.81 mill/uL (4.20-5.40)
[2023-07-19 05:28] LABS: Band 6 % (5-11); Burr Cells SLIGHT = 2-5 cells HPF (0-1); Lymphocytes 6 % (21-51); Monocytes 11 % (0-10); Myelocyte 1 % (0-0); Neutrophil 76 % (42-75); Nucleated RBC (Manual Ct) 1 % (0); Platelet Adequacy Comment Platelets Normal; Poikilocytosis SLIGHT = 6-15 cells HPF (0-5); Reactive Lymphocytes 1 % (0-10); Smudge Cells 6.8 %
[2023-07-19 05:54] LABS: BUN (Urea Nitrogen) 133 mg/dL (9.8-20.1)
[2023-07-19 05:56] LABS: Anion Gap 20 mmol/L (10-20); Calc. Creatinine Clearance 26 mL/min (70-130); Calcium 7.8 mg/dL (7.8-10.44); Carbon Dioxide 17 mmol/L (23-31); Chloride 99 mmol/L (98-107); Estimated GFR 14; Glucose 131 mg/dL (83-110); Potassium 4.7 mmol/L (3.5-5.1); Sodium 131 mmol/L (136-145)
[2023-07-19] MEDS ORDERED: Heparin 10,000 UNITS/ 10 ML VIAL ONE (09:12)
[2023-07-19 19:31] LABS: HBSAB Concentration Less than 8.00 mIU/mL; HBsAg Index 0.22 S/CO (0-0.99); Hep B Core Total Ab NONREACTIVE (NonReactive); Hep B Core Total Index 0.09 S/CO (0-0.79); Hep B Surf AB NONREACTIVE (NonReactive); Hep B Surf Ag NONREACTIVE S/CO (NonReactive); Hep C IgG Ab NONREACTIVE S/CO (NonReactive); Hep C Index 0.07 S/CO (0-0.79)
[2023-07-20 05:04] LABS: Anion Gap 20 mmol/L (10-20); BUN (Urea Nitrogen) 103 mg/dL (9.8-20.1); Calc. Creatinine Clearance 29 mL/min (70-130); Calcium 8.1 mg/dL (7.8-10.44); Carbon Dioxide 19 mmol/L (23-31); Chloride 99 mmol/L (98-107); Estimated GFR 16; Glucose 92 mg/dL (83-110); Potassium 4.7 mmol/L (3.5-5.1); Sodium 133 mmol/L (136-145)
[2023-07-20 05:08] LABS: Hematocrit 24.7 % (36.0-47.0); Hemoglobin 8.1 g/dL (12.0-16.0); Mean Corpuscular HGB CONC 32.8 g/dL (32.0-36.0); Mean Corpuscular Hemoglobin 30.3 pg (27.0-31.0); Mean Corpuscular Volume 92.5 fL (78.0-98.0); Mean Platelet Volume 10.3 fL (7.4-10.4); Platelet Count 307 10x3/uL (130-400); RBC Distribution Width 19.2 % (11.5-14.5); Red Blood Cell (RBC) Count 2.67 mill/uL (4.20-5.40)
[2023-07-20 05:41] LABS: Band 15 % (5-11); Large Platelets 3.9 % (0-5); Lymphocytes 2 % (21-51); Metamyelocyte 1 % (0-0); Monocytes 6 % (0-10); Neutrophil 77 % (42-75); Nucleated RBC (Manual Ct) 6 % (0); Platelet Adequacy Comment Platelets Normal; Polychromasia SLIGHT = 2-3 cells HPF (0-2)
[2023-07-20 07:00] LABS: Actual Bicarbonate (HCO3a) 20.1 mEq/L (22-28); Base Excess (BEa) -6.6 mEq/L (-2.0 to +3.0); CO2 Tension 46.1 mmHg (35.0-45.0); Calcium, Ionized (arterial) 1.05 mmol/L (1.12-1.30); Carboxyhemoglobin (COHb) 0.3 gm% (0.0-3.0); Hematocrit-ABG 27 % (36.0-47.0); Hemoglobin (Hb) 9.2 g/dL (12.0-16.0); O2 Tension (PaO2), arterial 119.8 mmHg (> 70.0); Potassium - ABG Lab 4.67 mmol/L (3.70-5.30); pH, Arterial 7.258 (7.35-7.45)
[2023-07-20 07:10] LABS: ALV-art Gradient 107.775 mmHg (0-20); Puncture Site RBA
[2023-07-20] MEDS ORDERED: Heparin 10,000 UNITS/ 10 ML VIAL ONE (10:47)
[2023-07-20] MEDS: EPOETIN ALFA-EPBX (ESRD) 10,000 UNITS/ML VIAL IVP SCH (11:29)
[2023-07-20 16:34] VITALS: BMI 40.1
[2023-07-20] MEDS: Arformoterol 15 MCG/2 ML NEB NEB SCH (18:20)
[2023-07-20] MEDS: Metoclopramide HCl 10 MG (2 mL) VIAL IVP SCH (21:18)
[2023-07-21 08:20] LABS: Anion Gap 20 mmol/L (10-20); BUN (Urea Nitrogen) 68 mg/dL (9.8-20.1); Calc. Creatinine Clearance 33 mL/min (70-130); Calcium 8.7 mg/dL (7.8-10.44); Carbon Dioxide 22 mmol/L (23-31); Chloride 98 mmol/L (98-107); Estimated GFR 18; Glucose 74 mg/dL (83-110); Potassium 4.1 mmol/L (3.5-5.1); Sodium 136 mmol/L (136-145)
[2023-07-21 08:30] LABS: Actual Bicarbonate (HCO3a) 22.6 mEq/L (22-28); Base Excess (BEa) -2.9 mEq/L (-2.0 to +3.0); CO2 Tension 42.2 mmHg (35.0-45.0); Calcium, Ionized (arterial) 1.11 mmol/L (1.12-1.30); Carboxyhemoglobin (COHb) 1.1 gm% (0.0-3.0); Hematocrit-ABG 26 % (36.0-47.0); Hemoglobin (Hb) 8.9 g/dL (12.0-16.0); O2 Tension (PaO2), arterial 101.7 mmHg (> 70.0); Potassium - ABG Lab 4.22 mmol/L (3.70-5.30); Puncture Site RRA; pH, Arterial 7.347 (7.35-7.45)
[2023-07-21] MEDS: Amiodarone 200 MG TAB PO SCH (08:36)
[2023-07-21 09:44] LABS: Hematocrit 24.6 % (36.0-47.0); Mean Corpuscular HGB CONC 32.5 g/dL (32.0-36.0); Mean Corpuscular Hemoglobin 30.8 pg (27.0-31.0); Mean Corpuscular Volume 94.6 fL (78.0-98.0); Mean Platelet Volume 10.6 fL (7.4-10.4); Platelet Count 330 10x3/uL (130-400); RBC Distribution Width 19.3 % (11.5-14.5)
[2023-07-21 11:19] LABS: Anisocytosis SLIGHT = 6-15 cells HPF (0-5); Band 21 % (5-11); Hypochromia SLIGHT = 6-15 cells HPF (0-5); Lymphocytes 2 % (21-51); Metamyelocyte 1 % (0-0); Monocytes 7 % (0-10); Neutrophil 69 % (42-75); Nucleated RBC (Manual Ct) 2 % (0); Platelet Adequacy Comment Platelets Normal; Poikilocytosis SLIGHT = 6-15 cells HPF (0-5); Polychromasia SLIGHT = 2-3 cells HPF (0-2)
[2023-07-22 05:07] LABS: Hematocrit 22.9 % (36.0-47.0); Hemoglobin 7.7 g/dL (12.0-16.0); Mean Corpuscular HGB CONC 33.6 g/dL (32.0-36.0); Mean Corpuscular Hemoglobin 30.1 pg (27.0-31.0); Mean Corpuscular Volume 89.5 fL (78.0-98.0); Mean Platelet Volume 10.5 fL (7.4-10.4); Platelet Count 337 10x3/uL (130-400); Red Blood Cell (RBC) Count 2.56 mill/uL (4.20-5.40)
[2023-07-22 05:33] LABS: Anion Gap 21 mmol/L (10-20); BUN (Urea Nitrogen) 85 mg/dL (9.8-20.1); Calc. Creatinine Clearance 24 mL/min (70-130); Calcium 8.7 mg/dL (7.8-10.44); Carbon Dioxide 20 mmol/L (23-31); Chloride 98 mmol/L (98-107); Estimated GFR 13; Glucose 130 mg/dL (83-110); Potassium 4.2 mmol/L (3.5-5.1); Sodium 135 mmol/L (136-145)
[2023-07-22 06:01] LABS: Anisocytosis SLIGHT = 6-15 cells HPF (0-5); Band 8 % (5-11); Eosinophils 1 % (0-10); Hypochromia SLIGHT = 6-15 cells HPF (0-5); Large Platelets 2.9 % (0-5); Metamyelocyte 1 % (0-0); Monocytes 3 % (0-10); Neutrophil 87 % (42-75); Nucleated RBC (Manual Ct) 2 % (0); Platelet Adequacy Comment Platelets Normal; Polychromasia SLIGHT = 2-3 cells HPF (0-2); Smudge Cells 9.8 %
[2023-07-22] MEDS: Ipratropium/Albuterol 3 ML NEB NEB SCH (11:13)
[2023-07-22] MEDS ORDERED: Heparin 10,000 UNITS/ 10 ML VIAL ONE (13:04)
[2023-07-22] MEDS: Meropenem 1 GM in Sodium Chloride 0.9% 100 ML IVPB SCH (17:21)
[2023-07-22] MEDS: Vancomycin 1 GM in Premix 1 BAG IVPB SCH (18:15)
[2023-07-22 20:56] LABS: Hematocrit 24.6 % (36.0-47.0); Hemoglobin 8.4 g/dL (12.0-16.0)
[2023-07-23 04:21] LABS: Hematocrit 25.2 % (36.0-47.0); Hemoglobin 8.9 g/dL (12.0-16.0); Mean Corpuscular HGB CONC 35.3 g/dL (32.0-36.0); Mean Corpuscular Volume 90.6 fL (78.0-98.0); Mean Platelet Volume 10.2 fL (7.4-10.4); Platelet Count 310 10x3/uL (130-400); RBC Distribution Width 17.7 % (11.5-14.5); Red Blood Cell (RBC) Count 2.78 mill/uL (4.20-5.40)
[2023-07-23 04:36] LABS: Anion Gap 20 mmol/L (10-20); BUN (Urea Nitrogen) 45 mg/dL (9.8-20.1); Calc. Creatinine Clearance 38 mL/min (70-130); Calcium 8.7 mg/dL (7.8-10.44); Carbon Dioxide 23 mmol/L (23-31); Chloride 97 mmol/L (98-107); Estimated GFR 22; Glucose 148 mg/dL (83-110); Potassium 3.6 mmol/L (3.5-5.1); Sodium 136 mmol/L (136-145)
[2023-07-23 05:51] LABS: Band 3 % (5-11); Hypochromia SLIGHT = 6-15 cells HPF (0-5); Lymphocytes 2 % (21-51); Metamyelocyte 1 % (0-0); Monocytes 6 % (0-10); Neutrophil 88 % (42-75); Nucleated RBC (Manual Ct) 1 % (0); Platelet Adequacy Comment Platelets Normal; Polychromasia SLIGHT = 2-3 cells HPF (0-2)
[2023-07-23 08:07] VITALS: TEMP 98.7
[2023-07-23 10:32] VITALS: BP 102/43
[2023-07-23] MEDS: Morphine 4 MG/ML VIAL SLOW IVP PRN (11:12)
[2023-07-23] MEDS: GLYCOPYRROLATE/PF 0.2 MG/ML VIAL SLOW IVP SCH (11:12)
[2023-07-23] MEDS: Lorazepam 2 MG/ML VIAL SLOW IVP PRN (11:12)
[2023-07-23] MEDS: Glycopyrrolate 0.4 MG/ 2 ML VIAL SLOW IVP SCH (11:48)
[2023-07-23] MEDS ORDERED: Meropenem 500 MG in Sodium Chloride 0.9% 100 ML IVPB SCH (17:00)
== END 2023-07-23 12:40 | disposition expired | DRG 235 ==
LOC: SURG A 07-01 07:19 → CCU 07-01 10:58 → 2NO 07-02 18:30 → CCU 07-05 08:37 → IMCU/EMU 07-08 15:35 → 2SW 07-10 23:39 → CCU 07-13 09:59
PROVIDERS: ADMIT Thoracic Surgery (Cardiothoracic Vascular Surgery); ATTEND Thoracic Surgery (Cardiothoracic Vascular Surgery)
PROC: 02100Z9 Bypass Coronary Artery, One Artery from Left Internal Mammary, Open Approach (ICD-10-PCS; 2023-07-01)
PROC: 02L70CK Occlusion of Left Atrial Appendage with Extraluminal Device, Open Approach (ICD-10-PCS; 2023-07-01)
PROC: 30233J1 Transfusion of Nonautologous Serum Albumin into Peripheral Vein, Percutaneous Approach (ICD-10-PCS; 2023-07-01)
PROC: 4A133R1 Monitoring of Arterial Saturation, Peripheral, Percutaneous Approach (ICD-10-PCS; 2023-07-01)
PROC: 3E033XZ Introduction of Vasopressor into Peripheral Vein, Percutaneous Approach (ICD-10-PCS; 2023-07-01)
PROC: 5A09357 Assistance with Respiratory Ventilation, Less than 24 Consecutive Hours, Continuous Positive Airway Pressure (ICD-10-PCS; 2023-07-05)
PROC: 0BH17EZ Insertion of Endotracheal Airway into Trachea, Via Natural or Artificial Opening (ICD-10-PCS; principal; 2023-07-13)
PROC: 5A1955Z Respiratory Ventilation, Greater than 96 Consecutive Hours (ICD-10-PCS; 2023-07-13)
PROC: 5A1D70Z Performance of Urinary Filtration, Intermittent, Less than 6 Hours Per Day (ICD-10-PCS; 2023-07-13)
PROC: 0PQ00ZZ Repair Sternum, Open Approach (ICD-10-PCS; 2023-07-14)
PROC: 5A2204Z Restoration of Cardiac Rhythm, Single (ICD-10-PCS; 2023-07-14)
PROC: 02HV33Z Insertion of Infusion Device into Superior Vena Cava, Percutaneous Approach (ICD-10-PCS; 2023-07-14)
PROC: 06HY33Z Insertion of Infusion Device into Lower Vein, Percutaneous Approach (ICD-10-PCS; 2023-07-19)
PROC: 30233N1 Transfusion of Nonautologous Red Blood Cells into Peripheral Vein, Percutaneous Approach (ICD-10-PCS; 2023-07-22)
DX: I25.10 Atherosclerotic heart disease of native coronary artery without angina pectoris (principal); J96.01 Acute respiratory failure with hypoxia; Z66 Do not resuscitate; Z51.5 Encounter for palliative care; N17.0 Acute kidney failure with tubular necrosis; J98.11 Atelectasis; I48.19 Other persistent atrial fibrillation; T81.31XA Disruption of external operation (surgical) wound, not elsewhere classified, initial encounter; I97.641 Postprocedural seroma of a circulatory system organ or structure following cardiac bypass; I97.631 Postprocedural hematoma of a circulatory system organ or structure following cardiac bypass; I12.0 Hypertensive chronic kidney disease with stage 5 chronic kidney disease or end stage renal disease; N18.5 Chronic kidney disease, stage 5; E87.20 Acidosis, unspecified; E87.1 Hypo-osmolality and hyponatremia; J95.851 Ventilator associated pneumonia; D72.829 Elevated white blood cell count, unspecified; J44.9 Chronic obstructive pulmonary disease, unspecified; E78.00 Pure hypercholesterolemia, unspecified; I73.9 Peripheral vascular disease, unspecified; E66.9 Obesity, unspecified; D64.9 Anemia, unspecified; I48.0 Paroxysmal atrial fibrillation; Y95 Nosocomial condition; Z88.0 Allergy status to penicillin; Z85.3 Personal history of malignant neoplasm of breast; Z79.899 Other long term (current) drug therapy; Z79.51 Long term (current) use of inhaled steroids; Z79.01 Long term (current) use of anticoagulants; Z98.890 Other specified postprocedural states; Z88.8 Allergy status to other drugs, medicaments and biological substances; Z87.891 Personal history of nicotine dependence; Z68.38 Body mass index [BMI] 38.0-38.9, adult; Z91.040 Latex allergy status; Z88.7 Allergy status to serum and vaccine; Z88.6 Allergy status to analgesic agent; Z91.048 Other nonmedicinal substance allergy status
CPT/HCPCS: 36415; 36416; 36430; 36600; 71045; 71250; 80048; 80053; 80061; 80202; 82565; 82805; 83735; 84100; 84145; 85025; 85027; 85610; 85730; 86704; 86706; 86803; 86850; 86900; 86901; 87040; 87340; 93005; 93010; 93306; 93798; 94002; 94003; 94640; 94660; 94664; 97139; A4311; C1751; C1889; C9113; J0171; J0282; J0360; J0665; J1100; J1642; J1644; J1815; J1885; J1940; J2001; J2060; J2185; J2250; J2270; J2405; J2440; J2704; J2720; J2765; J2920; J3010; J3370; J3370-JW; J3475; J3480; J3490; J7030; J7050; J7070; J7611; J7614; J7620; J7626; P9016; P9045; P9047; Q5105; S0017; S0028